=== PATIENT | female | born 1980 | race Caucasian/White ===

== ENCOUNTER 2020-06-21 08:38 | Inpatient (IN) | payer MEDICARE, MEDICAID ==
[~2020-06-21] VITALS: Ht 149.9 cm; Wt 55.1 kg
[2020-06-21 08:43] VITALS: BP 89/40
[2020-06-21] MEDS ORDERED: CALCIUM500 MG PO (08:52)
[2020-06-21] MEDS ORDERED: LINZESS72 MCG PO (08:52)
[2020-06-21 09:17] LABS: ABSOLUTE LYMPHOCYTES 0.3 thou/uL (0.8-5.3); ABSOLUTE MONOCYTES 0.2 thou/uL (0.0-1.2); ABSOLUTE NEUTROPHILS 1.9 thou/uL (1.6-8.1); BASOPHILS 0.3 %; EOSINOPHILS 0.1 %; HEMATOCRIT 40.5 % (37.0-47.0); HEMOGLOBIN 13.7 gm/dL (12.0-15.0); LYMPHOCYTES 14.1 %; MCH 32.4 pg (26.0-34.0); MCHC 33.9 g/dL (28.0-37.0); MCV 95.7 fL (80.0-100.0); MONOCYTES 6.2 %; MPV 8.1 fl. (7.2-11.1); NUCLEATED RBCS 0 /100WBC; PLATELET COUNT* 58 thou/uL (150-400); POLYS 79.3 %; RBC 4.23 mil/uL (4.20-5.00); RDW-CV 12.9 % (10.5-14.5); WBC 2.4 thou/uL (4.0-11.0)
[2020-06-21] MEDS ORDERED: SUMATRIPTAN-NA1 EACH PO (09:19)
[2020-06-21 09:25] LABS: CALCIUM 7.8 mg/dL (8.5-10.1); CREATININE 1.1 mg/dL (0.6-1.3); POTASSIUM 3.7 mmol/L (3.5-5.1)
[2020-06-21 09:27] LABS: APTT 29.1 Seconds (25.0-31.3); PROTIME 10.8 Seconds (9.20-11.50)
[2020-06-21 09:29] LABS: ALBUMIN 2.7 g/dL (3.4-5.0); TOTAL BILIRUBIN 0.3 mg/dL (<0.1-1.0); TOTAL PROTEIN 6.4 g/dL (6.4-8.2)
[2020-06-21 09:48] LABS: PLATELET ESTIMATE DECREASED
[2020-06-21] MEDS ORDERED: TOPAMAX100 MG PO (10:51)
[2020-06-21 11:18] LABS: URINE BILIRUBIN NEGATIVE (Negative); URINE BLOOD NEGATIVE (Negative); URINE CLARITY CLEAR; URINE COLOR YELLOW; URINE GLUCOSE-RANDOM NEGATIVE (Negative); URINE KETONES 1+ (Negative); URINE LEUKOCYTES-REFLEX NEGATIVE (Negative); URINE NITRITE-REFLEX NEGATIVE (Negative); URINE PROTEIN NEGATIVE (Negative); URINE UROBILINOGEN 0.2 E.U./dl (0.2-1.0)
[2020-06-21 16:34] VITALS: BP 82/41
[2020-06-21] MEDS ORDERED: VITAMIN E1000 UNIT PO (17:59)
[2020-06-21] MEDS ORDERED: ZINC SULFATE220 MG PO (18:00)
[2020-06-21] MEDS ORDERED: VITAMIN C1000 MG PO (18:00)
[2020-06-21 20:00] VITALS: BP 96/62
[2020-06-21 21:30] VITALS: BP 97/62
[2020-06-21 21:38] VITALS: BP 115/57
[2020-06-22 05:04] VITALS: BP 96/47
[2020-06-22 05:29] LABS: HEMATOCRIT 38.6 % (37.0-47.0); HEMOGLOBIN 13.3 gm/dL (12.0-15.0); MCH 32.4 pg (26.0-34.0); MCHC 34.3 g/dL (28.0-37.0); MCV 94.2 fL (80.0-100.0); MPV 9.1 fl. (7.2-11.1); RBC 4.1 mil/uL (4.20-5.00); RDW-CV 12.6 % (10.5-14.5)
[2020-06-22 05:53] LABS: WBC 1.4 thou/uL (4.0-11.0)
[2020-06-22 05:59] LABS: CALCIUM 7.7 mg/dL (8.5-10.1); CREATININE 0.8 mg/dL (0.6-1.3); POTASSIUM 3.3 mmol/L (3.5-5.1)
[2020-06-22] MEDS ORDERED: TOPAMAX PO (06:46)
[2020-06-22] MEDS ORDERED: LINZESS72 MCG PO (06:47)
[2020-06-22] MEDS ORDERED: NEURONTIN300 MG PO (06:47)
[2020-06-22] MEDS ORDERED: OMEGA 3 500 SO1 EACH PO (06:48)
[2020-06-22] MEDS ORDERED: MULTI FOR HER1 EAC1 PO (06:50)
[2020-06-22] MEDS ORDERED: CALCIUM 600-D31 EACH PO (06:51)
[2020-06-22] MEDS ORDERED: ZINC PO (07:50)
[2020-06-22] MEDS ORDERED: VITAMIN C1000 MG PO (07:52)
--- NOTE | 2020-06-22 11:48 | EKG ---
[place] [address] ELECTROCARDIOGRAM REPORT Name: TORRIE NEVES Room: [address] IN [facility].#: [id number] Admission: 06/21/20 Attend Phys: Cami Monk MD Discharge: Date of : 76 Date of Service: 06/21/20 0852 Report #: [id number] THIS REPORT FOR: //name// [facility] ED Test Date: 2020-06-21 Test Time: 08:52:07 Pat Name: TORRIE NEVES Department: Room: [facility] Gender: F [employer] Apprentice: CD : 1980 Requested By: Regulo Jennings Order Number: [id number] MD: Scout Curry Measurements Intervals Mccle[place]an Rate: 52 P: 44 MA: 168 QRS: 77 QRSD: 105 T: 81 QT: 471 QTc: 438 Interpretive Statements Sinus bradycardia Borderline T abnormalities, lateral leads No previous ECG available for comparison Electronically Signed On 06-22-2020 11:48:30 [employer]CIAL [employer] by Scout Curry [email or web address] <ELECTRONICALLY SIGNED> By: Scout Curry MD, [facility] 06/22/20 1148 0852 0852 Scout Curry MD, [facility] /EPI
[2020-06-22 16:12] VITALS: BP 100/57
[2020-06-22 20:00] VITALS: BP 87/53
[2020-06-23] VITALS: BP 82/42
[2020-06-23 04:00] VITALS: BP 95/53
[2020-06-23 06:06] LABS: HEMATOCRIT 39.3 % (37.0-47.0); HEMOGLOBIN 13.6 gm/dL (12.0-15.0); MCH 32.3 pg (26.0-34.0); MCHC 34.7 g/dL (28.0-37.0); MCV 93.1 fL (80.0-100.0); MPV 8.6 fl. (7.2-11.1); RBC 4.22 mil/uL (4.20-5.00); RDW-CV 12.5 % (10.5-14.5)
[2020-06-23 06:27] LABS: WBC 1.9 thou/uL (4.0-11.0)
[2020-06-23 06:34] LABS: ALBUMIN 2.6 g/dL (3.4-5.0); CALCIUM 7.8 mg/dL (8.5-10.1); CREATININE 0.8 mg/dL (0.6-1.3); MAGNESIUM 2.1 mg/dL (1.8-2.4); POTASSIUM 3.5 mmol/L (3.5-5.1); TOTAL BILIRUBIN 0.4 mg/dL (<0.1-1.0); TOTAL PROTEIN 6.4 g/dL (6.4-8.2)
[2020-06-23] MEDS ORDERED: DEPAKOTE ER500 M1 PO (08:39)
[2020-06-23 08:52] VITALS: BP 92/52
[2020-06-23 11:48] VITALS: BP 92/52
[2020-06-23 15:02] VITALS: BP 107/61
[2020-06-23 18:15] VITALS: BP 104/53
== END 2020-06-23 18:39 | disposition home or self-care (01) | DRG 178 ==
LOC: M.ERS 08:38 → M.ORTHSURG 12:29 → M.TBA-ER 12:29 → M.ORTHSURG 21:38
PROVIDERS: Emergency Medicine Emergency Medical Services; ADMIT Family Medicine; ATTEND Family Medicine
DX: U07.1 COVID-19 (principal); R65.10 Systemic inflammatory response syndrome (SIRS) of non-infectious origin without acute organ dysfunction; E44.1 Mild protein-calorie malnutrition; I95.9 Hypotension, unspecified; Q90.9 Down syndrome, unspecified; R56.9 Unspecified convulsions; D72.819 Decreased white blood cell count, unspecified; Z79.899 Other long term (current) drug therapy; Z88.1 Allergy status to other antibiotic agents; Z68.24 Body mass index [BMI] 24.0-24.9, adult